=== PATIENT | female | born 1955 | race Hispanic/Latino ===

== ENCOUNTER 2018-01-21 12:36 | Outpatient (CLI) | payer MEDICARE ==
--- NOTE | 2018-01-21 13:58 | XRay Report ---
XRAY RIGHT SHOULDER THREE VIEWS: 01/21/18 12:36:00 CLINICAL: Right shoulder pain. FINDINGS: Normal glenohumeral alignment. Mild glenohumeral joint arthritis. Mild AC joint arthritis. Mild irregularity of the greater tuberosity of the humerus. No fracture or dislocation. No bone lesion. Normal soft tissues. IMPRESSION: Mild arthritis and mild degenerative change at the rotator cuff insertion.
== END 2018-01-21 12:37 | disposition home or self-care (01) ==
LOC: SPVIMAG 12:36
PROVIDERS: ATTEND Orthopaedic Surgery
DX: M19.011 Primary osteoarthritis, right shoulder (principal); I10 Essential (primary) hypertension; Z87.891 Personal history of nicotine dependence; Z88.0 Allergy status to penicillin; Z88.2 Allergy status to sulfonamides; Z90.89 Acquired absence of other organs

== ENCOUNTER 2018-11-27 11:15 | Outpatient (CLI) | payer MEDICARE ==
--- NOTE | 2018-11-27 13:01 | XRay Report ---
BILATERAL KNEE RADIOGRAPHS INDICATION: Knee pain. COMPARISON: 10/03/2011. FINDINGS: AP, lateral, oblique and sunrise views of both knees demonstrate interval tricompartmental osteoarthrosis progression with greatest, mild to moderate involvement/narrowing of the medial and patellofemoral joint spaces, left somewhat more than right. Diffuse degenerative spurring bilaterally also seen. No significant suprapatellar effusions suspected. CONCLUSION: Interval progression of bilateral knee osteoarthritis, as described. Thank you for the opportunity to participate in this patient's care.
== END 2018-11-27 11:16 | disposition home or self-care (01) ==
LOC: XRAY 11:15
PROVIDERS: ATTEND Physical Medicine & Rehabilitation
DX: Z51.81 Encounter for therapeutic drug level monitoring (principal); M17.0 Bilateral primary osteoarthritis of knee; M54.5 Low back pain; M54.2 Cervicalgia; I10 Essential (primary) hypertension